=== PATIENT | male | born 2000 | race Asian ===

== ENCOUNTER 2021-04-21 00:52 | Emergency (ER) | payer SELFPAY ==
[~2021-04-21] VITALS: Ht 172.7 cm; Wt 65.8 kg
--- NOTE | 2021-04-21 01:14 | NUR ---
BIBS C/O HITTING HIS CHIN ON HIS KNEE WHILE DOING A FLIP. +HEADACHE -N/V -KO. PATIENT ALERT AND ORIENTED X3. AMBULATORY WITH NON LABORED BREATHING.
[2021-04-21] MEDS ORDERED: IBUPROFEN 600 MG TABLET PO ONE (01:30)
[2021-04-21] MEDS ORDERED: IBUPROFEN 600 MG TABLET ONE (01:44)
[2021-04-21 02:12] VITALS: BP 112/78
--- NOTE | 2021-04-21 02:12 | NUR ---
Patient discharged to home in stable condition. Written and verbal after care instructions given. Patient verbalizes understanding of instruction.
== END 2021-04-21 02:13 | disposition home or self-care (01) ==
LOC: ER 01:01
DX: S09.90XA Unspecified injury of head, initial encounter (principal); F07.81 Postconcussional syndrome; Z60.2 Problems related to living alone; W18.09XA Striking against other object with subsequent fall, initial encounter; Y93.89 Activity, other specified; Y92.89 Other specified places as the place of occurrence of the external cause; Y99.8 Other external cause status
CPT/HCPCS: 70450-TC